=== PATIENT | female | born 1955 | race Caucasian/White ===

== ENCOUNTER 2021-12-11 12:19 | Emergency (ER) | payer BC, MEDICARE ==
[~2021-12-11] VITALS: Ht 152.4 cm; Wt 81.6 kg
[2021-12-11] MEDS ORDERED: SODIUM CHLORIDE 0.9% 1000ML 1,000 ML IV ONE (13:00)
[2021-12-11] MEDS ORDERED: ONDANSETRON HCL INJ 2MG/ML 2ML 2 MG/ML VIAL IV PRN (13:00)
[2021-12-11 13:32] LABS: BASOPHILS % 0.5 % (0.0-1.0); EOSINOPHILS % 0.4 % (0.0-6.0); HEMATOCRIT 28.9 % (34.2-44.1); HEMOGLOBIN 9.3 g/dL (12.0-16.0); LYMPHOCYTES # (AUTO) 0.6 (1.0-3.2); LYMPHOCYTES % 7.4 % (18.0-39.1); MEAN CORPUSCULAR HEMOGLOBIN 26.4 pg (28-32); MEAN CORPUSCULAR HGB CONC 32.2 g/dL (31-35); MEAN CORPUSCULAR VOLUME 82.1 fL (81-99); MONOCYTES # (AUTO) 0.4 (0.2-0.8); MONOCYTES % 4.6 % (4.4-11.3); NEUTROPHILS # (AUTO) 7.5 (2.1-6.9); NEUTROPHILS % 86.9 % (38.7-80.0); PLATELET COUNT 334 x10e3/uL (140-360); RED BLOOD COUNT 3.52 x10e6/uL (3.6-5.1); RED CELL DISTRIBUTION WIDTH 13.6 % (11.7-14.4)
[2021-12-11 13:55] LABS: ALBUMIN 3.8 g/dL (3.5-5.0); ALBUMIN/GLOBULIN RATIO 1.3 (0.8-2.0); ANION GAP 14.6 mmol/L (8-16); CALCIUM 9.2 mg/dL (8.4-10.2); CREATININE, SERUM 1.04 mg/dL (0.57-1.11); POTASSIUM 4.6 mmol/L (3.5-5.1)
[2021-12-11 15:02] LABS: CLARITY,URINE CLEAR (CLEAR); COLOR,URINE YELLOW (YELLOW); KETONES,URINE NEGATIVE (NEGATIVE); LEUKOCYTE ESTERASE ,URINE NEGATIVE (NEGATIVE); NITRITE,URINE NEGATIVE (NEGATIVE); PROTEIN,URINE DIPSTICK NEGATIVE (NEGATIVE); URINE UROBILINOGEN 0.2 mg/dL (0.2 - 1)
[2021-12-11 15:14] LABS: BACTERIA,URINE RARE /HPF
[2021-12-11] MEDS ORDERED: DICYCLOMINE HCL20 MG PO (15:33)
[2021-12-11] MEDS ORDERED: ONDANSETRON ODT4 MG PO (15:33)
[2021-12-11] MEDS ORDERED: ACETAMINOPHEN 325 MG TAB PO ONE (15:45)
== END 2021-12-11 15:45 | disposition home or self-care (01) ==
LOC: ER 12:21
DX: R11.0 Nausea (principal); R53.1 Weakness; E11.65 Type 2 diabetes mellitus with hyperglycemia; I10 Essential (primary) hypertension; Z20.822 Contact with and (suspected) exposure to COVID-19
CPT/HCPCS: 36415; 80053; 81001; 83690; 84484; 85025; 93005; 99283; J2405; J7030; U0002

== ENCOUNTER 2022-12-04 14:38 | Inpatient (IN) | payer MEDICARE ==
[~2022-12-04] VITALS: Ht 152.4 cm; Wt 68.0 kg
[~2022-12-04 14:38] MED LIST: DICYCLOMINE HCL20 MG PO; ONDANSETRON ODT4 MG PO
[2022-12-04] MEDS ORDERED: ASPIRIN 81 MG CHEW TAB PO STA (14:58)
[2022-12-04 15:18] LABS: BASOPHILS # (AUTO) 0.1 (0.0-0.1); BASOPHILS % 0.6 % (0.0-1.0); EOSINOPHILS # (AUTO) 0.1 (0.0-0.4); EOSINOPHILS % 1.6 % (0.0-6.0); HEMATOCRIT 29.3 % (34.2-44.1); LYMPHOCYTES # (AUTO) 1.3 (1.0-3.2); LYMPHOCYTES % 15.9 % (18.0-39.1); MEAN CORPUSCULAR HEMOGLOBIN 27.8 pg (28-32); MEAN CORPUSCULAR HGB CONC 30.7 g/dL (31-35); MEAN CORPUSCULAR VOLUME 90.4 fL (81-99); MONOCYTES # (AUTO) 0.9 (0.2-0.8); MONOCYTES % 10.6 % (4.4-11.3); NEUTROPHILS # (AUTO) 5.8 (2.1-6.9); NEUTROPHILS % 70.9 % (38.7-80.0); PLATELET COUNT 321 x10e3/uL (140-360); RED BLOOD COUNT 3.24 x10e6/uL (3.6-5.1); RED CELL DISTRIBUTION WIDTH 12.3 % (11.7-14.4)
[2022-12-04 15:33] LABS: INR 0.92; PROTHROMBIN TIME 12.6 seconds (11.9-14.5)
[2022-12-04 15:34] LABS: PARTIAL THROMBOPLASTIN TIME 27.8 seconds (23.8-35.5)
[2022-12-04 15:42] LABS: ALBUMIN 3.6 g/dL (3.5-5.0); ALBUMIN/GLOBULIN RATIO 1.3 (0.8-2.0); ANION GAP 13.5 mmol/L (8-16); CALCIUM 8.7 mg/dL (8.4-10.2); CREATININE, SERUM 1.07 mg/dL (0.57-1.11); MAGNESIUM 1.3 MG/DL (1.3-2.1); POTASSIUM 4.5 mmol/L (3.5-5.1)
[2022-12-04 15:49] LABS: CREATINE KINASE MB 1.7 ng/mL (0-5.0)
[2022-12-04] MEDS ORDERED: METOPROLOL TARTRATE INJ 1 MG/ML VIAL IV ONE (16:00)
[2022-12-04] MEDS ORDERED: HYDRALAZINE HCL 20 MG/ML VIAL IV PRN (16:00)
[2022-12-04] MEDS ORDERED: ACETAMINOPHEN 325 MG TAB PO PRN (16:00)
[2022-12-04] MEDS ORDERED: ONDANSETRON HCL INJ 2MG/ML 2ML 2 MG/ML VIAL IV PRN (17:30)
[2022-12-04] MEDS: FAMOTIDINE 20 MG/2 ML VIAL IV SCH (17:30)
[2022-12-04 23:19] LABS: CREATINE KINASE MB 2.1 ng/mL (0-5.0)
[2022-12-05] VITALS (10 sets, daily range): BP systolic 124–184; BP diastolic 56–75
[2022-12-05] MEDS ORDERED: TYLENOL325 MG PO (00:37)
[2022-12-05] MEDS ORDERED: FLUOXETINE HCL20 MG PO (00:44)
[2022-12-05] MEDS ORDERED: ONDANSETRON ODT4 MG PO (00:44)
[2022-12-05] MEDS ORDERED: ASPIRIN81 MG PO (00:44)
[2022-12-05] MEDS ORDERED: LABETALOL HCL100 MG PO (00:44)
[2022-12-05] MEDS ORDERED: NEURONTIN300 MG PO (00:44)
[2022-12-05] MEDS ORDERED: HYDRALAZINE HC100 MG PO (00:44)
[2022-12-05] MEDS ORDERED: ATORVASTATIN CA20 MG PO (00:44)
[2022-12-05] MEDS ORDERED: METFORMIN HCL500 MG PO (00:44)
[2022-12-05] MEDS: FAMOTIDINE 20 MG/2 ML VIAL IV SCH ×2 (05:38→17:07)
[2022-12-05 05:52] LABS: BASOPHILS # (AUTO) 0.1 (0.0-0.1); BASOPHILS % 0.7 % (0.0-1.0); EOSINOPHILS # (AUTO) 0.2 (0.0-0.4); EOSINOPHILS % 2.2 % (0.0-6.0); HEMATOCRIT 28.8 % (34.2-44.1); HEMOGLOBIN 8.8 g/dL (12.0-16.0); LYMPHOCYTES # (AUTO) 1.4 (1.0-3.2); LYMPHOCYTES % 19.1 % (18.0-39.1); MEAN CORPUSCULAR HEMOGLOBIN 27.7 pg (28-32); MEAN CORPUSCULAR HGB CONC 30.6 g/dL (31-35); MEAN CORPUSCULAR VOLUME 90.6 fL (81-99); MONOCYTES # (AUTO) 0.8 (0.2-0.8); MONOCYTES % 10.9 % (4.4-11.3); NEUTROPHILS # (AUTO) 4.9 (2.1-6.9); NEUTROPHILS % 66.8 % (38.7-80.0); PLATELET COUNT 281 x10e3/uL (140-360); RED BLOOD COUNT 3.18 x10e6/uL (3.6-5.1)
[2022-12-05 06:33] LABS: ALBUMIN 3.4 g/dL (3.5-5.0); ALBUMIN/GLOBULIN RATIO 1.3 (0.8-2.0); ANION GAP 12.1 mmol/L (8-16); CALCIUM 8.8 mg/dL (8.4-10.2); CHOL/HDL RATIO 2.2 (3.0-3.6); CREATININE, SERUM 1.1 mg/dL (0.57-1.11); POTASSIUM 4.1 mmol/L (3.5-5.1)
[2022-12-05 06:54] LABS: CREATINE KINASE MB 2.2 ng/mL (0-5.0)
[2022-12-05 07:07] LABS: % IRON SATURATION 8 % (15-50); IRON 40 ug/dL (50-170); TOTAL IRON BINDING CAPACITY 477 ug/dL (261-478); TRANSFERRIN 341 mg/dL (180-382)
[2022-12-05] MEDS ORDERED: LOSARTAN POTASSIUM 25 MG TAB PO SCH (09:00)
[2022-12-05] MEDS: METOPROLOL SUCCINATE 25 MG TAB XL PO SCH (09:44)
[2022-12-05] MEDS: ASPIRIN 81 MG ENTERIC COATED PO SCH (09:45)
[2022-12-05] MEDS ORDERED: IRON SUCROSE 100 MG in SODIUM CHLORIDE 0.9% 100 ML IV SCH (14:00)
[2022-12-05] MEDS ORDERED: ATORVASTATIN 20 MG TAB PO SCH (21:00)
[2022-12-05] MEDS ORDERED: HYDRALAZINE HCL 25 MG TAB PO SCH (21:00)
[2022-12-05] MEDS ORDERED: GABAPENTIN 300 MG CAP PO SCH (22:00)
[2022-12-05] MEDS: FLUOXETINE HCL 20 MG CAP PO SCH (22:05)
[2022-12-05] MEDS: HYDRALAZINE HCL 25 MG TAB PO SCH (22:05)
[2022-12-06] VITALS (7 sets, daily range): BP systolic 140–184; BP diastolic 53–75
[2022-12-06] MEDS: FAMOTIDINE 20 MG/2 ML VIAL IV SCH (05:43)
[2022-12-06] MEDS ORDERED: REGADENOSON 0.4 MG/5 ML SYR IV ONE (08:51)
[2022-12-06] MEDS ORDERED: LOSARTAN POTASSIUM 25 MG TAB PO SCH (09:00)
[2022-12-06] MEDS: ASPIRIN 81 MG ENTERIC COATED PO SCH (11:37)
[2022-12-06] MEDS: FLUOXETINE HCL 20 MG CAP PO SCH (11:37)
[2022-12-06] MEDS: HYDRALAZINE HCL 25 MG TAB PO SCH (11:39)
[2022-12-06] MEDS: METOPROLOL SUCCINATE 25 MG TAB XL PO SCH (11:39)
[2022-12-06] MEDS ORDERED: ONDANSETRON HCL 4 MG ORAL DISINTEGRATING TAB PO PRN (12:45)
[2022-12-06] MEDS ORDERED: FAMOTIDINE 20 MG TAB PO SCH (16:30)
[2022-12-06] MEDS ORDERED: ATORVASTATIN 40 MG TAB PO SCH (21:00)
== END 2022-12-06 15:00 | disposition home or self-care (01) | DRG 311 ==
LOC: ER 14:47 → ERHOLD 17:24 → MED/SURG2 22:16
PROVIDERS: ADMIT Internal Medicine; ATTEND Internal Medicine
DX: I20.9 Angina pectoris, unspecified (principal); E87.1 Hypo-osmolality and hyponatremia; I16.1 Hypertensive emergency; D50.9 Iron deficiency anemia, unspecified; I10 Essential (primary) hypertension; I70.1 Atherosclerosis of renal artery; Z20.822 Contact with and (suspected) exposure to COVID-19
CPT/HCPCS: 36415; 71045; 78452; 80053; 80061; 82550; 82553; 82948; 83540; 83690; 83735; 83880; 84466; 84484; 85025; 85610; 85730; 93005; 93017; 93306; 94799; 99284; A9502; J1756; J2405; J7050